=== PATIENT | female | born 1965 | race Caucasian/White ===

== ENCOUNTER 2016-11-22 19:09 | Emergency (ER) | payer MEDICAID ==
[~2016-11-22] VITALS: Ht 142.2 cm; Wt 119.3 kg
[2016-11-22] MEDS ORDERED: Metoclopramide 10mg/2ml Inj IM ONE (20:45)
[2016-11-22] MEDS ORDERED: Ketorolac 30mg Inj IM ONE (20:45)
[2016-11-22] MEDS ORDERED: DiphenhydrAMINE 50mg/ml Inj IM ONE (20:45)
[2016-11-22] MEDS ORDERED: Methocarbamol 750mg tab ORAL ONE (21:15)
[2016-11-22] MEDS ORDERED: ROBAXIN500 MG PO (21:41)
[2016-11-22] MEDS ORDERED: REGLAN10 MG ORAL (21:41)
[2016-11-22] MEDS ORDERED: TYLENOL EXTRA500 MG ORAL (21:41)
[2016-11-22 21:50] VITALS: BP 123/77
--- NOTE | 2016-11-22 22:05 | Emergency Room Report ---
History of Present Illness General Chief Complaint: Pain Source: Patient Present Illness HPI The patient is a 54-year-old female with a history of hypertension and diabetes presenting for headache, light sensitivity, and leg cramping. The patient states the headache is described as a right-sided 10/10 throbbing. Pain does not radiate. The patient states that she has not had migraines in the past. The patient also admits to nausea but denies vomiting. Patient denies neck pain or stiffness. The patient also states that she has had muscle cramping of the legs which began last night. The patient does admit to drinking less water. The patient denies any other symptoms including fever, chills, cough, shortness of breath, chest pain, numbness or tingling of extremities Allergies: Uncoded Allergies: SULFA (Allergy, Unknown, 11/22/16) Patient History Past Medical History: see triage record Pertinent Family History: none Last Menstrual Period: 10/28/2016 Immunizations: UTD Reviewed Nursing Documentation: PMH: Agreed, PSxH: Agreed Nursing Documentation-PMH Hx Cardiac Problems: Yes - CHF, DJD Hx Asthma: Yes Hx Diabetes: Yes Review of Systems All Other Systems: negative except mentioned in HPI Physical Exam Vital Signs Date Time Temp Pulse Resp B/P Pulse Ox O2 Delivery O2 Flow Rate FiO2 11/22/16 19:29 98.4 85 16 127/72 96 Room Air Sp02 EP Interpretation: reviewed, normal General Appearance: no apparent distress, alert, GCS 15, non-toxic Head: normocephalic, atraumatic Eyes: right eye EOMI, bilateral eye PERRL, bilateral eye normal inspection ENT: hearing grossly normal, normal pharynx, no angioedema, normal voice, uvula midline Neck: full range of motion, supple, no bony tend, supple/symm/no masses Respiratory: chest non-tender, lungs clear, normal breath sounds, speaking full sentences Cardiovascular #1: regular rate, rhythm, no edema Cardiovascular #2: 2+ carotid (R), 2+ carotid (L), 2+ radial (R), 2+ radial (L) , 2+ dorsalis pedis (R), 2+ dorsalis pedis (L) Gastrointestinal: normal bowel sounds, non tender, soft, non-distended, no guarding, no rebound Rectal: deferred Genitourinary: normal inspection, no CVA tenderness Musculoskeletal: back normal, gait/station normal, normal range of motion, non- tender Neurologic: alert, oriented x3, responsive, motor strength/tone normal, sensory intact, speech normal Psychiatric: judgement/insight normal, memory normal, mood/affect normal, no suicidal/homicidal ideation Reflexes: 3+ bicep (R), 3+ bicep (L), 3+ tricep (R), 3+ tricep (L), 3+ knee (R) , 3+ knee (L) Skin: normal color, no rash, warm/dry, well hydrated Lymphatic: no adenopathy Medical Decision Making PA Attestation Dr. Sethi is my supervising physician. Patient management was discussed with my supervising physician Diagnostic Impression: Primary Impression: Muscle spasm Additional Impression: Migraine ER Course The patient is a 54-year-old female with a history of hypertension and diabetes presenting for headache, light sensitivity, and leg cramping. Differential diagnosis considered: Migraine headache, tension headache, dehydration, muscle strain/sprain Physical exam: Vitals within normal limits. No apparent distress HEENT exam unremarkable. Head is normocephalic atraumatic. Nontender Neck is soft and supple. Full active range of motion Full active range of motion of lower extremities including hips, knees, ankles. No obvious deformity. Nontender The patient is given Toradol, Reglan, Benadryl, and Robaxin. Patient is feeling better. The patient will be discharged home with a prescription for Tylenol, Reglan, and Robaxin. ER precautions are given. Last Vital Signs Date Time Temp Pulse Resp B/P Pulse Ox O2 Delivery O2 Flow Rate FiO2 11/22/16 19:29 98.4 85 16 127/72 96 Room Air Status: improved Disposition: HOME, SELF-CARE Condition: Improved Scripts Metoclopramide Hcl* (REGLAN*) 10 Mg Tablet 10 MG ORAL THREE TIMES A DAY, #15 TAB Prov: TERZIAN,VAMSHI P.A. 11/22/16 Methocarbamol* (ROBAXIN*) 500 Mg Tablet 500 MG PO TID, #21 TAB 0 Refills Prov: TERZIAN,VAMSHI P.A. 11/22/16 Acetaminophen* (TYLENOL EXTRA STRENGTH*) 500 Mg Tablet 500 MG ORAL Q8H Y for Prn Headache/Temp > 101, #30 TAB 0 Refills Prov: VAMSHI CONNER 11/22/16 Patient Instructions: Heat Therapy, Migraine Headache Additional Instructions: I discussed my findings with the patient. All questions and concerns have been answered. Treatment and medication compliance have been addressed. I advised the patient that they need to follow up with PMD in 3-5 days. Return to ED if symptoms worsen, new symptoms arise, or if needed for any reason. Patient verbalized understanding of discharge instructions. VAMSHI CONNER Nov 22, 2016 22:05
== END 2016-11-22 21:50 | disposition home or self-care (01) ==
LOC: EMR 19:47
DX: M62.838 Other muscle spasm (principal); I10 Essential (primary) hypertension; G43.909 Migraine, unspecified, not intractable, without status migrainosus
CPT/HCPCS: 96372; 99284; J1200; J1885; J2765

== ENCOUNTER 2018-12-13 19:02 | Emergency (ER) | payer MEDICAID ==
[~2018-12-13] VITALS: Ht 144.8 cm; Wt 113.4 kg
[~2018-12-13 19:02] MED LIST: REGLAN10 MG ORAL; ROBAXIN500 MG PO; TYLENOL EXTRA500 MG ORAL
[2018-12-13 19:10] VITALS: BP 142/86
--- NOTE | 2018-12-13 19:22 | NUR ---
ED Nurse Note: Pt BIBA from home due to "slipped and fell in the bath room", complaining of L hip pain, no head trauma, no KO. AO4. NAD.
--- NOTE | 2018-12-13 19:40 | NUR ---
ED Nurse Note: IV access established. Blood collected; sent down to lab.
--- NOTE | 2018-12-13 19:40 | NUR ---
ED Nurse Note: Pt down to imaging.
[2018-12-13 19:57] LABS: EOSINOPHILS % (AUTO) 2.3 % (0.0-3.0); HEMATOCRIT 42.5 % (37.0-47.0); HEMOGLOBIN 14.1 G/DL (12.0-16.0); LYMPHOCYTES % (AUTO) 34.9 % (20.0-45.0); MEAN CORPUSCULAR VOLUME 90 FL (80-99); NEUTROPHILS % (AUTO) 55.9 % (45.0-75.0); PLATELET COUNT 243 K/UL (150-450); RED CELL DISTRIBUTION WIDTH 12.6 % (11.6-14.8); WHITE BLOOD COUNT 9.1 K/UL (4.8-10.8)
[2018-12-13] MEDS ORDERED: Ketorolac 30mg Inj IV ONE (20:15)
--- NOTE | 2018-12-13 20:24 | NUR ---
ED Nurse Note: Pt downt to CT
--- NOTE | 2018-12-13 20:30 | NUR ---
ED Nurse Note: patient back from CT
[2018-12-13 20:35] LABS: APPEARANCE,URINE CLEAR; BILIRUBIN, URINE NEGATIVE (NEGATIVE); COLOR,URINE PALE YELLOW; GLUCOSE, URINE (UA) 4+ (NEGATIVE); KETONES,URINE 2+ (NEGATIVE); LEUKOCYTE ESTERASE ,URINE NEGATIVE (NEGATIVE); NITRITE,URINE NEGATIVE (NEGATIVE); PH,URINE 6 (4.5-8.0); PROTEIN,URINE NEGATIVE (NEGATIVE); UROBILINOGEN,URINE NORMAL MG/DL (0.0-1.0)
[2018-12-13 20:49] LABS: BASOPHILS % (AUTO) 0.7 % (0.0-2.0); EOSINOPHILS % (AUTO) 2.2 % (0.0-3.0); HEMATOCRIT 43.8 % (37.0-47.0); HEMOGLOBIN 14.2 G/DL (12.0-16.0); LYMPHOCYTES % (AUTO) 35.5 % (20.0-45.0); MEAN CORPUSCULAR VOLUME 90 FL (80-99); MONOCYTES % (AUTO) 6.1 % (1.0-10.0); NEUTROPHILS % (AUTO) 55.5 % (45.0-75.0); PLATELET COUNT 238 K/UL (150-450); RED BLOOD COUNT 4.85 M/UL (4.20-5.40); RED CELL DISTRIBUTION WIDTH 12.6 % (11.6-14.8)
[2018-12-13 21:10] LABS: ANION GAP 11 mmol/L (5-15); BLOOD UREA NITROGEN 5 mg/dL (7-18); CALCIUM 8.8 MG/DL (8.5-10.1); CARBON DIOXIDE 24 MMOL/L (21-32); CHLORIDE 103 MMOL/L (98-107); CREATININE 0.9 MG/DL (0.55-1.30); POTASSIUM 3.4 MMOL/L (3.5-5.1); SODIUM 138 MMOL/L (136-145)
[2018-12-13 21:15] LABS: ALANINE AMINOTRANSFERASE 27 U/L (12-78); ALBUMIN 3.2 G/DL (3.4-5.0); ALBUMIN/GLOBULIN RATIO 0.8 (1.0-2.7); ALKALINE PHOSPHATASE 94 U/L (46-116); ASPARTATE AMINO TRANSFERASE 14 U/L (15-37); BILIRUBIN,TOTAL 0.2 MG/DL (0.2-1.0)
[2018-12-13] MEDS ORDERED: Albuterol ud Inhalation HHN ONE (21:15)
[2018-12-13] MEDS ORDERED: Norco 5mg/325mg tab ORAL ONE (22:45)
--- NOTE | 2018-12-13 23:04 | Emergency Room Report ---
History of Present Illness General Chief Complaint: Multiple Trauma/Fall Source: Patient (Porsha Perdomo DO) Present Illness HPI The patient states that she was getting out of the bathtub when she grabbed onto the railing and the railing gave way and she fell out of the bath tub onto the floor onto her left side. She complains of pain in her left hip and left back. She states she is unable to ambulate. She is unable to move. She states her pain is severe. (Porsha Perdomo DO) Allergies: Coded Allergies: SULFA (SULFONAMIDE ANTIBIOTICS) (Unverified Allergy, Unknown, 12/13/18) Uncoded Allergies: SULFA (Allergy, Unknown, 11/22/16) Patient History Past Medical History: see triage record, DM, CHF, asthma Social History: Denies: smoking, alcohol use, drug use Now: No Reviewed Nursing Documentation: PMH: Agreed; PSxH: Agreed (Porsha Perdomo DO) Nursing Documentation-PMH Past Medical History: No History, Except For Hx Cardiac Problems: Yes - CHF Hx Asthma: Yes Hx Diabetes: Yes (Porsha Perdomo DO) Review of Systems All Other Systems: negative except mentioned in HPI (Porsha Perdomo DO) Physical Exam Vital Signs Date Time Temp Pulse Resp B/P (MAP) Pulse Ox O2 Delivery O2 Flow Rate FiO2 12/13/18 19:00 98.1 80 18 142/86 98 Room Air 12/13/18 21:17 21 Sp02 EP Interpretation: reviewed, normal General Appearance: no apparent distress, alert, GCS 15, non-toxic Head: normocephalic, atraumatic Eyes: bilateral eye normal inspection, bilateral eye PERRL ENT: hearing grossly normal, normal pharynx, no angioedema, normal voice Neck: full range of motion, supple/symm/no masses Respiratory: chest non-tender, lungs clear, normal breath sounds, no respiratory distress, no retraction, no accessory muscle use, speaking full sentences Cardiovascular #1: regular rate, rhythm, no edema Gastrointestinal: normal bowel sounds, non tender, soft, non-distended, no guarding, no rebound Rectal: deferred Musculoskeletal: tender - TTP over the L. hip, buttock, L. flank, L-spine. Neurologic: alert, oriented x3, responsive, motor strength/tone normal, sensory intact, speech normal Psychiatric: judgement/insight normal, memory normal, mood/affect normal, no suicidal/homicidal ideation Skin: normal color, no rash, warm/dry, well hydrated (Porsha Perdomo. ) Medical Decision Making Diagnostic Impression: Primary Impression: Fall Additional Impressions: Back strain Unable to ambulate Bronchospasm Laboratory Tests Test 12/13/18 19:35 12/13/18 20:20 12/13/18 20:40 White Blood Count 9.1 K/UL (4.8-10.8) 10.0 K/UL (4.8-10.8) Red Blood Count 4.70 M/UL (4.20-5.40) 4.85 M/UL (4.20-5.40) Hemoglobin 14.1 G/DL (12.0-16.0) 14.2 G/DL (12.0-16.0) Hematocrit 42.5 % (37.0-47.0) 43.8 % (37.0-47.0) Mean Corpuscular Volume 90 FL (80-99) 90 FL (80-99) Mean Corpuscular Hemoglobin 29.9 PG (27.0-31.0) 29.2 PG (27.0-31.0) Mean Corpuscular Hemoglobin Concent 33.1 G/DL (32.0-36.0) 32.4 G/DL (32.0-36.0) Red Cell Distribution Width 12.6 % (11.6-14.8) 12.6 % (11.6-14.8) Platelet Count 243 K/UL (150-450) 238 K/UL (150-450) Mean Platelet Volume 7.1 FL (6.5-10.1) 6.2 FL (6.5-10.1) L Neutrophils (%) (Auto) 55.9 % (45.0-75.0) 55.5 % (45.0-75.0) Lymphocytes (%) (Auto) 34.9 % (20.0-45.0) 35.5 % (20.0-45.0) Monocytes (%) (Auto) 6.0 % (1.0-10.0) 6.1 % (1.0-10.0) Eosinophils (%) (Auto) 2.3 % (0.0-3.0) 2.2 % (0.0-3.0) Basophils (%) (Auto) 1.0 % (0.0-2.0) 0.7 % (0.0-2.0) Urine Color Pale yellow Urine Appearance Clear Urine pH 6 (4.5-8.0) Urine Specific [place] 1.010 (1.005-1.035) Urine Protein Negative (NEGATIVE) Urine Glucose (UA) 4+ (NEGATIVE) H Urine Ketones 2+ (NEGATIVE) H Urine Blood Negative (NEGATIVE) Urine Nitrite Negative (NEGATIVE) Urine Bilirubin Negative (NEGATIVE) Urine Urobilinogen Normal MG/DL (0.0-1.0) Urine Leukocyte Esterase Negative (NEGATIVE) Sodium Level 138 MMOL/L (136-145) Potassium Level 3.4 MMOL/L (3.5-5.1) L Chloride Level 103 MMOL/L (98-107) Carbon Dioxide Level 24 MMOL/L (21-32) Anion Gap 11 mmol/L (5-15) Blood Urea Nitrogen 5 mg/dL (7-18) L Creatinine 0.9 MG/DL (0.55-1.30) Estimate Glomerular Filtration Rate > 60 mL/min (>60) Glucose Level 316 MG/DL (74-106) H Calcium Level 8.8 MG/DL (8.5-10.1) Total Bilirubin 0.2 MG/DL (0.2-1.0) Aspartate Amino Transferase (AST) 14 U/L (15-37) L Alanine Aminotransferase (ALT) 27 U/L (12-78) Alkaline Phosphatase 94 U/L (46-116) Total Protein 7.4 G/DL (6.4-8.2) Albumin 3.2 G/DL (3.4-5.0) L Globulin 4.2 g/dL Albumin/Globulin Ratio 0.8 (1.0-2.7) L (Porsha Perdomo DO) ER Course Please see above. Discussed with Dr. Krishna who accepts the patient. Morphine given for analgesia. (Emmanuel Armenta MD) Other X-Ray Diagnostic Results Other X-Ray Diagnostic Results : X-Ray ordered: L. Hip xray # of Views/Limited Vs Complete: Complete Indication: Pain EP Interpretation: Yes Interpretation: no dislocation, no soft tissue swelling, no fractures Impression: No acute disease Electronically Signed by: Porsha Perdomo DO (Porsha Perdomo DO) CT/MRI/US Diagnostic Results CT/MRI/US Diagnostic Results : Imaging Test Ordered: CT L-spine Impression No fracture or abnormalities identified. See official report. (Porsha Perdomo DO) Last Vital Signs Date Time Temp Pulse Resp B/P (MAP) Pulse Ox O2 Delivery O2 Flow Rate FiO2 12/13/18 21:44 95 16 98 Room Air 21 12/13/18 20:46 98.0 12/13/18 19:00 142/86 (Porsha Perdomo DO) Last Vital Signs Date Time Temp Pulse Resp B/P (MAP) Pulse Ox O2 Delivery O2 Flow Rate FiO2 12/14/18 07:37 97.8 74 18 119/69 93 Room Air 12/13/18 21:44 21 Status: improved (Emmanuel Armenta MD) [facility] Condition: Serious Porsha Perdomo DO Dec 13, 2018 23:04 Emmanuel Armenta MD Dec 14, 2018 00:13
[2018-12-14] VITALS: BP 136/79
[2018-12-14] MEDS ORDERED: Morphine Sulfate 4mg/ml Inj (IV USE ONLY) IVP ONE ×2 (02:15→07:15)
[2018-12-14 04:00] VITALS: BP 140/78
[2018-12-14 05:40] VITALS: BP 143/74
--- NOTE | 2018-12-14 05:40 | NUR ---
ED Nurse Note: RECEIVED REPORT FROM MIKE ROE. PT VSS AT THE MOMENT, PT IS AOX4, ON ROOM AIR. PT SKIN IS INTACT, AND NO ACTUE DISTRESS IS PRESENT. PT AWAITING TRANSFER TO [facility]. PT BELONGINGS ARE WITH HER AT BEDSIDE.
--- NOTE | 2018-12-14 06:13 | NUR ---
ED Nurse Note: PT IS ASLEEP IN BED, VSS.
--- NOTE | 2018-12-14 07:14 | NUR ---
HAND-OFF: Report given to MIKE PEÑA.
--- NOTE | 2018-12-14 07:15 | NUR ---
ED Nurse Note: received patient in bed. a/o x4 c/o pain on the left hip 07/26. IV site is intact patent, vss, see flowsheet.
--- NOTE | 2018-12-14 07:35 | NUR ---
ED Nurse Note: patient is being transferred by the [facility] ambulance with all of her belongings, patient is stable ERMD ok to transfer
[2018-12-14 07:37] VITALS: BP 119/69
--- NOTE | 2018-12-14 09:26 | Diagnostic Imaging Report ---
Indications: Trauma, pain, status post fall Technique: Spiral acquisitions obtained through the lumbar spine. Multiplanar reconstructions were generated. No IV contrast utilized. Total dose length product 1386.35 mGycm. CTDIvol(s) 51.64 mGy. Dose reduction achieved using automated exposure control Comparison: none Findings: Vertebral body heights are preserved. Disc spaces are preserved. Bony alignment is normal. No acute fractures. No dislocations. There is degenerative facet arthrosis at L3-4 bilaterally, at L4-5 on the left. There is bilateral sacroiliac degenerative change. There is transitional lumbosacral anatomy, with a sacralized L5 and a pseudoarticulation on the right. There is mild circumferential annular bulge at L2-3, which results in borderline narrowing of the spinal canal. The neural foramina are preserved. There is circumferential annular bulge at L3-4, resulting in borderline narrowing of the spinal canal. The right neural foramen is preserved. There is minimal narrowing of the left neural foramen due to facet arthrosis. At L4-5, mild circumferential annular bulge and ligament flavum hypertrophy results in borderline narrowing of the spinal canal. The neural foramina are preserved. At L5-S1, posterior osteophytes do not significantly impinge upon the spinal canal and there is no neural foraminal stenosis. The included extraspinal soft tissues are unremarkable. Impression: No acute bony trauma Mild multilevel degenerative changes, as detailed on a level by level basis above This agrees with the preliminary interpretation provided overnight by [facility] teleradiology service. The CT scanner at [facility] is accredited by the [employer] and the scans are performed using protocols designed to limit radiation exposure to as low as reasonably achievable to attain images of sufficient resolution adequate for diagnostic evaluation.
--- NOTE | 2018-12-14 11:40 | Diagnostic Imaging Report ---
Indication: Pain status post fall Technique: 2 views of the left hip Comparison: none Findings: No acute fractures. No dislocations. Joint spaces are preserved. Impression: Negative
== END 2018-12-14 07:50 | disposition short-term general hospital (02) ==
LOC: EDBD 19:02 → EMR 19:45
DX: S39.012A Strain of muscle, fascia and tendon of lower back, initial encounter (principal); W19.XXXA Unspecified fall, initial encounter; Y92.002 Bathroom of unspecified non-institutional (private) residence as the place of occurrence of the external cause; J98.01 Acute bronchospasm; E11.9 Type 2 diabetes mellitus without complications; J45.909 Unspecified asthma, uncomplicated; I50.9 Heart failure, unspecified
CPT/HCPCS: 36415; 72131; 73502; 80053; 81003; 85025; 94640; 94664; 96374; 96375; 96376; 99284; J1885; J2270; J2405

== ENCOUNTER 2019-04-11 23:06 | Emergency (ER) | payer MEDICAID ==
[~2019-04-11] VITALS: Ht 144.8 cm; Wt 112.9 kg
--- NOTE | 2019-04-11 23:15 | NUR ---
ED Nurse Note: RECIEVED PT BIBA FROM HOME WITH C/O SEVERE SUDDEN BACK PAIN AT 10, NO INJURY OR FALL, PT HAS BEEN HAVING PROBLEM FOR PAST 6 MONTHS AND WAITING FOR MD REFERRAL FOR MRI AND PAIN MANAGEMENT, PT WALKS WITH WALKER AND HAS TROUBLE AMBULATING DUE TO PAIN, PT DENIES CP, SOB, OR ANY OTHER COMPLAINTS. PT IMMEDIATELY GOWNED AND PLACED ON CARDIAC MONITORING, WILL RESUME CARE ORDERED, WITH CLOSE MONITORING.
[2019-04-11] MEDS ORDERED: HYDROCODON-ACE1 EA15 ORAL (23:38)
--- NOTE | 2019-04-11 23:39 | Emergency Room Report ---
History of Present Illness General Chief Complaint: Back Pain-No Injury Source: Patient, Medical Record Present Illness HPI This is a 53-year-old female with a BMI of 54. She presents with chief complaint of lower back pain. She has a history of degenerative disc disease. This was seen on a CT scan in November. She is scheduled for an MRI in a week or so. She presents with lower back pain. Pain is 10 out of 10. Radiating to the buttock area. No incontinence of bowel or urine. No trauma. No fever chills. No anesthesia. Movement made it worse. Holding still made it better. She took ibuprofen and it is not helping. She has a prescription for Ultram that was written on February 15 and she has not filled it yet. Allergies: Coded Allergies: SULFA (SULFONAMIDE ANTIBIOTICS) (Unverified Allergy, Unknown, 12/13/18) Uncoded Allergies: SULFA (Allergy, Unknown, 11/22/16) Patient History Past Medical History: see triage record, old chart reviewed Past Surgical History: other Pertinent Family History: none Now: No Immunizations: other Reviewed Nursing Documentation: PMH: Agreed; PSxH: Agreed Nursing Documentation-PMH Hx Cardiac Problems: Yes - CHF, degen disc disease Hx Asthma: Yes Hx Diabetes: Yes Review of Systems Eye: Denies: eye pain, blurred vision ENT: Denies: ear pain, nose congestion, throat swelling Respiratory: Denies: cough, shortness of breath Cardiovascular: Denies: chest pain, palpitations Gastrointestinal: Denies: abdominal pain, diarrhea, nausea, vomiting Musculoskeletal: Reports: back pain; Denies: joint pain Skin: Denies: rash Neurological: Denies: headache, numbness Endocrine: Denies: increased thirst, increased urine Hematologic/Lymphatic: Denies: easy bruising All Other Systems: negative except mentioned in HPI Physical Exam Vital Signs Date Time Temp Pulse Resp B/P (MAP) Pulse Ox O2 Delivery O2 Flow Rate FiO2 04/11/19 23:07 97.9 84 18 154/80 (104) 98 Room Air Sp02 EP Interpretation: reviewed, normal General Appearance: well appearing, no apparent distress, alert, obese Head: normocephalic, atraumatic Eyes: bilateral eye PERRL, bilateral eye EOMI ENT: hearing grossly normal, normal pharynx Neck: full range of motion, supple, no meningismus Respiratory: chest non-tender, lungs clear, normal breath sounds Cardiovascular #1: regular rate, rhythm, no murmur Gastrointestinal: normal bowel sounds, non tender, no mass, no organomegaly, no bruit, non-distended Musculoskeletal: back normal - Diffuse lower back pain, normal range of motion Neurologic: alert, oriented x3 Psychiatric: mood/affect normal Skin: warm/dry Medical Decision Making Diagnostic Impression: Primary Impression: Back pain Qualified Codes: M54.5 - Low back pain ER Course Patient with lower back pain. No evidence of cauda equina syndrome, spinal rib abscess or neoplastic process. No trauma to warrant x-rays. Last Vital Signs Date Time Temp Pulse Resp B/P (MAP) Pulse Ox O2 Delivery O2 Flow Rate FiO2 04/11/19 23:07 97.9 84 18 154/80 (104) 98 Room Air Status: improved Disposition: HOME, SELF-CARE Condition: Stable Scripts Hydrocodone/Acetaminophen 5-325* (HYDROCODONE/ACETAMINOPHEN 5-325*) 1 Each Tablet 1 TAB ORAL Q6H PRN for For Pain, #30 TAB 0 Refills Prov: Sushil Siegel MD 04/11/19 Patient Instructions: Back Pain, Adult Additional Instructions: Follow-up with your doctor in a week. Keep your appointment for MRI. Return if symptoms worsen. Sushil Siegel MD Apr 11, 2019 23:39
[2019-04-11 23:45] VITALS: BP 139/71
[2019-04-11] MEDS ORDERED: HYDROmorphone 1mg/ml Carpuject IM ONE (23:45)
[2019-04-11 23:55] VITALS: BP 154/80
--- NOTE | 2019-04-11 23:55 | NUR ---
ER DISCHARGE NOTE: Patient is cleared to be discharged per ERMD, pt is aox4, on room air, with stable vital signs. pt was given dc and prescription instructions, pt was able to verbalize understanding, pt id band removed without complications. pt is able to ambulate with steady gait. pt took all belongings. pt medicated with dilaudid, pt is present to drive her home, pt left ambulating better with walker, also reviewed with pt and proper medication administration.
== END 2019-04-11 23:55 | disposition home or self-care (01) ==
LOC: EDUNIT# 23:06 → EDBD 23:06 → EMR 23:46
DX: M54.5 Low back pain (principal); Z88.2 Allergy status to sulfonamides; E11.9 Type 2 diabetes mellitus without complications; I50.9 Heart failure, unspecified
CPT/HCPCS: 96372; 99283; J1170

== ENCOUNTER 2020-04-01 16:31 | Emergency (ER) | payer MEDICAID ==
[~2020-04-01] VITALS: Ht 142.2 cm; Wt 114.8 kg
[~2020-04-01 16:31] MED LIST changes: +HYDROCODON-ACE1 EA15 ORAL
[2020-04-01] MEDS ORDERED: basaglar SUBQ (16:44)
[2020-04-01] MEDS ORDERED: LIPITOR40 MG ORAL (16:44)
[2020-04-01] MEDS ORDERED: VENTOLIN HFA18 GM INH (16:44)
[2020-04-01] MEDS ORDERED: HUMALOG100 UNIT/3 SUBQ (16:44)
[2020-04-01] MEDS ORDERED: SINGULAIR10 MG ORAL (16:44)
[2020-04-01] MEDS ORDERED: TRAMADOL HCL50 MG ORAL (16:44)
[2020-04-01] MEDS ORDERED: IBUPROFEN600 M1 ORAL (16:44)
[2020-04-01] MEDS ORDERED: CARVEDILOL6.25 MG ORAL (16:44)
[2020-04-01] MEDS ORDERED: VALIUM5 MG ORAL (16:44)
[2020-04-01] MEDS ORDERED: ASPIRIN81 MG ORAL (16:44)
[2020-04-01] MEDS ORDERED: NORCO 5-325 TA1 EAC1 ORAL (16:44)
[2020-04-01] MEDS ORDERED: GABAPENTIN100 MG ORAL (16:44)
[2020-04-01] MEDS ORDERED: METFORMIN HCL500 M1 ORAL (16:44)
[2020-04-01] MEDS ORDERED: NITRO0.4 SL (16:44)
[2020-04-01] MEDS ORDERED: FAMOTIDINE20 MG ORAL (16:44)
--- NOTE | 2020-04-01 16:44 | Emergency Room Report ---
History of Present Illness General Chief Complaint: Chest Pain Source: Patient Present Illness HPI Patient is a 54-year-old female presents after increased chest discomfort. Reports having onset of pain after argument with her son. Has been having prior history of similar symptoms intermittently for several days. Reports having prior history of coronary disease and prior HI. She states that she had been having increased blood sugar over the past few days and is type II diabetic. Reports having some prior history of chronic pain for which she takes [place] as well as some other pain medications including ibuprofen. Reports having prior allergic reaction to lisinopril Allergies: Coded Allergies: LISINOPRIL (Verified Allergy, Severe, 04/01/20) SULFA (SULFONAMIDE ANTIBIOTICS) (Unverified Allergy, Unknown, 12/13/18) Uncoded Allergies: SULFA (Allergy, Unknown, 11/22/16) COVID-19 Screening Contact w/high risk pt: No Recent Travel to affected area: No Experienced COVID-19 symptoms?: No COVID-19 Testing performed BUYER AGENT: No Patient History Past Medical History: see triage record Last Menstrual Period: na Reviewed Nursing Documentation: PMH: Agreed; PSxH: Agreed Nursing Documentation-PMH Past Medical History: No History, Except For Hx Cardiac Problems: Yes - CHF, degen disc disease Hx Asthma: Yes Hx Diabetes: Yes Review of Systems All Other Systems: negative except mentioned in HPI Physical Exam Vital Signs Date Time Temp Pulse Resp B/P (MAP) Pulse Ox O2 Delivery O2 Flow Rate FiO2 04/01/20 16:21 97.5 90 16 172/97 (122) 96 Room Air Sp02 EP Interpretation: reviewed, normal General Appearance: normal inspection, well appearing, no apparent distress, alert, GCS 15 Head: atraumatic ENT: normal ENT inspection, hearing grossly normal, normal voice Neck: normal inspection, full range of motion, supple, no bony tend Respiratory: normal inspection, lungs clear, normal breath sounds, no respiratory distress, no retraction, no wheezing Cardiovascular #1: regular rate, rhythm, no edema Gastrointestinal: normal inspection, normal bowel sounds, non tender, soft, no guarding, no hernia Genitourinary: no CVA tenderness Musculoskeletal: normal inspection, back normal, normal range of motion Neurologic: alert, motor strength/tone normal, gift officer III-XII nml as tested, responsive, speech normal, normal inspection Psychiatric: normal inspection, judgement/insight normal, mood/affect normal Medical Decision Making Diagnostic Impression: Primary Impression: Chest pain Additional Impression: ACS (acute coronary syndrome) ER Course Patient presented for chest pain. Differential diagnosis include was not limited to anxiety, unstable angina, CHF exacerbation, among others. Because of complexity of patient's case laboratory tests and imaging studies were ordered. EKG interpreted by me showed normal sinus rhythm with a rate of [address] or T wave changes. patient has a significant patient has significant cardiac risk factors and will be hospitalized for further evaluation and treatment of chest pain. Patient was discussed with Dr. Wright from [facility] who agreed accept the patient as transfer. Patient laboratory testing showed negative troponin as well as mildly elevated white blood count. Patient d-dimer was also noted to be negative. Patient be transferred for further evaluation of chest discomfort. Labs Test 04/01/20 16:50 White Blood Count 13.7 K/UL (4.8-10.8) Red Blood Count 5.02 M/UL (4.20-5.40) Hemoglobin 15.0 G/DL (12.0-16.0) Hematocrit 47.6 % (37.0-47.0) Mean Corpuscular Volume 95 FL (80-99) Mean Corpuscular Hemoglobin 29.9 PG (27.0-31.0) Mean Corpuscular Hemoglobin Concent 31.5 G/DL (32.0-36.0) Red Cell Distribution Width 13.7 % (11.6-14.8) Platelet Count 262 K/UL (150-450) Mean Platelet Volume 7.3 FL (6.5-10.1) Neutrophils (%) (Auto) 63.8 % (45.0-75.0) Lymphocytes (%) (Auto) 27.2 % (20.0-45.0) Monocytes (%) (Auto) 6.9 % (1.0-10.0) Eosinophils (%) (Auto) 1.2 % (0.0-3.0) Basophils (%) (Auto) 0.8 % (0.0-2.0) D-Dimer 0.21 mg/L FEU (0.00-0.49) Sodium Level 137 MMOL/L (136-145) Potassium Level 3.6 MMOL/L (3.5-5.1) Chloride Level 101 MMOL/L (98-107) Carbon Dioxide Level 27 MMOL/L (21-32) Anion Gap 9 mmol/L (5-15) Blood Urea Nitrogen 7 mg/dL (7-18) Creatinine 0.8 MG/DL (0.55-1.30) Estimat Glomerular Filtration Rate > 60 mL/min (>60) Glucose Level 247 MG/DL (74-106) Calcium Level 8.8 MG/DL (8.5-10.1) Total Bilirubin 0.3 MG/DL (0.2-1.0) Aspartate Amino Transf (AST/SGOT) 14 U/L (15-37) Alanine Aminotransferase (ALT/SGPT) 25 U/L (12-78) Alkaline Phosphatase 114 U/L (46-116) Troponin I 0.000 ng/mL (0.000-0.056) Pro-B-Type Natriuretic Peptide 19 pg/mL (0-125) Total Protein 7.6 G/DL (6.4-8.2) Albumin 3.3 G/DL (3.4-5.0) Globulin 4.3 g/dL Albumin/Globulin Ratio 0.8 (1.0-2.7) EKG Diagnostic Results Rate: normal Rhythm: NSR ST Segments: no acute changes Last Vital Signs Date Time Temp Pulse Resp B/P (MAP) Pulse Ox O2 Delivery O2 Flow Rate FiO2 04/01/20 16:21 97.5 90 16 172/97 (122) 96 Room Air Status: improved Disposition: SHORT-TERM HOSP Condition: Stable Ilia Allison MD Apr 01, 2020 16:44
[2020-04-01 17:05] LABS: BASOPHILS % (AUTO) 0.8 % (0.0-2.0); EOSINOPHILS % (AUTO) 1.2 % (0.0-3.0); HEMATOCRIT 47.6 % (37.0-47.0); LYMPHOCYTES % (AUTO) 27.2 % (20.0-45.0); MEAN CORPUSCULAR VOLUME 95 FL (80-99); MONOCYTES % (AUTO) 6.9 % (1.0-10.0); NEUTROPHILS % (AUTO) 63.8 % (45.0-75.0); PLATELET COUNT 262 K/UL (150-450); RED BLOOD COUNT 5.02 M/UL (4.20-5.40); RED CELL DISTRIBUTION WIDTH 13.7 % (11.6-14.8); WHITE BLOOD COUNT 13.7 K/UL (4.8-10.8)
[2020-04-01 17:08] VITALS: BP 132/66
[2020-04-01 17:14] LABS: ANION GAP 9 mmol/L (5-15); BLOOD UREA NITROGEN 7 mg/dL (7-18); CALCIUM 8.8 MG/DL (8.5-10.1); CARBON DIOXIDE 27 MMOL/L (21-32); CHLORIDE 101 MMOL/L (98-107); CREATININE 0.8 MG/DL (0.55-1.30); POTASSIUM 3.6 MMOL/L (3.5-5.1); SODIUM 137 MMOL/L (136-145)
[2020-04-01] MEDS ORDERED: Ketorolac 30mg Inj IV ONE (17:15)
[2020-04-01 17:25] LABS: ALANINE AMINOTRANSFERASE 25 U/L (12-78); ALBUMIN 3.3 G/DL (3.4-5.0); ALBUMIN/GLOBULIN RATIO 0.8 (1.0-2.7); ALKALINE PHOSPHATASE 114 U/L (46-116); ASPARTATE AMINO TRANSFERASE 14 U/L (15-37); BILIRUBIN,TOTAL 0.3 MG/DL (0.2-1.0)
[2020-04-01 18:59] VITALS: BP 126/64
[2020-04-01 20:45] VITALS: BP 121/59
--- NOTE | 2020-04-02 10:12 | Diagnostic Imaging Report ---
Procedure: XRAY Chest 1v Reason for study: Shortness of breath. Comparison films: None. FINDINGS: A single one view chest is obtained. Vascularity is normal. The lung vickers are clear bilaterally. Cardiac and mediastinal silhouette are within normal limits. CP angles are sharp. The bony thorax appear unremarkable. IMPRESSION: NO ACUTE CARDIOPULMONARY DISEASE.
== END 2020-04-01 20:45 | disposition short-term general hospital (02) ==
LOC: EDBD 16:31 → EMR 16:45
DX: R07.9 Chest pain, unspecified (principal); I24.9 Acute ischemic heart disease, unspecified; E11.9 Type 2 diabetes mellitus without complications; I50.9 Heart failure, unspecified; Z88.2 Allergy status to sulfonamides; I25.2 Old myocardial infarction; Z88.8 Allergy status to other drugs, medicaments and biological substances
CPT/HCPCS: 36415; 71045; 80053; 83880; 84484; 85025; 85379; 93005; J7040; Z7502; 99284